=== PATIENT | female | born 1980 | race Caucasian/White ===

== ENCOUNTER → 2017-10-28 | Outpatient (REF) | payer OTHER | LOC: M SFHCCLAY 13:56 | DX: J02.9 Acute pharyngitis, unspecified (principal) ==

== ENCOUNTER → 2018-03-14 | Outpatient (CLI) | payer OTHER | LOC: M CLY 08:24 | DX: M25.571 Pain in right ankle and joints of right foot (principal); M77.31 Calcaneal spur, right foot; M79.89 Other specified soft tissue disorders | CPT/HCPCS: 73610 ==

== ENCOUNTER → 2018-03-29 | Outpatient (REF) | payer OTHER | LOC: M SFHCCLAY 14:36 | DX: L08.9 Local infection of the skin and subcutaneous tissue, unspecified (principal) | CPT/HCPCS: 87186 ==

== ENCOUNTER → 2018-05-31 | Outpatient (CLI) | payer OTHER | LOC: M CLY 09:20 | DX: S40.011A Contusion of right shoulder, initial encounter (principal); S60.222A Contusion of left hand, initial encounter; R60.0 Localized edema; X58.XXXA Exposure to other specified factors, initial encounter; Y92.9 Unspecified place or not applicable | CPT/HCPCS: 73030 ==

== ENCOUNTER → 2018-06-08 | Outpatient (REF) | payer OTHER | LOC: M LAB REF 06-09 11:27 | DX: R19.7 Diarrhea, unspecified (principal); R14.1 Gas pain; R14.0 Abdominal distension (gaseous); R10.9 Unspecified abdominal pain; Z83.71 Family history of colonic polyps; K21.9 Gastro-esophageal reflux disease without esophagitis; R12 Heartburn; R11.0 Nausea ==

== ENCOUNTER → 2018-08-24 | Outpatient (REF) | payer OTHER ==
[2018-08-24 11:38] LABS: HEMATOCRIT 41.5 % (36.0-47.0); HEMOGLOBIN 13.8 g/dl (12.0-15.5); MEAN CORPUSCULAR HEMOGLOBIN 29.7 pg (27.0-33.0); MEAN CORPUSCULAR HGB CONC 33.3 g/dl (32.0-36.5); MEAN CORPUSCULAR VOLUME 89.2 fl (80.0-96.0); PLATELET COUNT, AUTOMATED 329 10^3/uL (150-450); RED BLOOD COUNT 4.65 10^6/uL (4.00-5.40); RED CELL DISTRIBUTION WIDTH 12.3 % (11.5-14.5); WHITE BLOOD COUNT 8.2 10^3/uL (4.0-10.0)
[2018-08-24 12:11] LABS: BLOOD UREA NITROGEN 15 MG/DL (7-18); CREATININE FOR GFR 0.76 MG/DL (0.55-1.30); GLUCOSE, FASTING 109 MG/DL (70-100)
[2018-08-24 12:12] LABS: ALBUMIN 3.8 GM/DL (3.2-5.2); ALBUMIN/GLOBULIN RATIO 1.23 (1.00-1.93); ALKALINE PHOSPHATASE 82 U/L (45-117); ALT/SGPT 76 U/L (12-78); ANION GAP 6 MEQ/L (8-16); AST/SGOT 40 U/L (7-37); BILIRUBIN,TOTAL 0.6 MG/DL (0.2-1.0); CALCIUM LEVEL 8.9 MG/DL (8.5-10.1); CARBON DIOXIDE LEVEL 31 MEQ/L (21-32); CHLORIDE LEVEL 104 MEQ/L (98-107); CHOLESTEROL LEVEL 255 MG/DL (<200); GLOMERULAR FILTRATION RATE > 60.0 (>60); HDL CHOLESTEROL 51 MG/DL (>40); LDL CHOLESTEROL 170 MG/DL (<100); NON-HDL-C 204 MG/DL; POTASSIUM SERUM 4.1 MEQ/L (3.5-5.1); SODIUM LEVEL 141 MEQ/L (136-145); TOTAL 25(OH) VITAMIN D 17.4 NG/ML (30.0-100.0); TOTAL PROTEIN 6.9 GM/DL (6.4-8.2); TRIGLYCERIDES LEVEL 171 MG/DL (<150)
== END ==
LOC: M SFHCCLAY 06:44
DX: K21.9 Gastro-esophageal reflux disease without esophagitis (principal); I10 Essential (primary) hypertension; Z13.6 Encounter for screening for cardiovascular disorders; R63.5 Abnormal weight gain; F32.9 Major depressive disorder, single episode, unspecified
CPT/HCPCS: 84443

== ENCOUNTER → 2018-09-30 | Outpatient (CLI) | payer OTHER ==
--- NOTE | 2018-09-30 09:39 | REP ---
Gastric emptying nuclear scintigraphy: History: Bloating. Nausea. Abdominal pain. Early satiety. Technique: 1.05 mCi of technetium-99m sulfur colloid was ingested in two scrambled eggs and 6 ounces of water and sequential anterior and posterior images are acquired for an 89-minute imaging observation period. Regions of interest are drawn around the stomach to plot gastric emptying. Scintigraphic findings: Expected T1/2 is 90 minutes. Five % emptying is observed in this patient during the 89-minute imaging observation period, for a calculated T1/2 in this patient of 968 minutes. Impression: Markedly delayed gastric emptying. Electronically Signed by Good Martines MD 09/30/2018 09:31 A
== END ==
LOC: M RAD 07:26
PROVIDERS: ATTEND Physician Assistant
DX: R68.81 Early satiety (principal); R14.0 Abdominal distension (gaseous); R10.13 Epigastric pain; R11.0 Nausea; K44.9 Diaphragmatic hernia without obstruction or gangrene; K31.84 Gastroparesis; K21.9 Gastro-esophageal reflux disease without esophagitis; R14.1 Gas pain; R19.7 Diarrhea, unspecified; K22.70 Barrett's esophagus without dysplasia

== ENCOUNTER → 2018-11-29 | Outpatient (REF) | payer OTHER | LOC: M SFHCPLAZ 09:53 | PROVIDERS: ATTEND Dermatology | DX: L72.11 Pilar cyst (principal) ==

== ENCOUNTER → 2019-03-15 | Outpatient (REF) | payer OTHER ==
[2019-03-15 16:56] LABS: ALBUMIN 4.2 GM/DL (3.2-5.2); ALT/SGPT 79 U/L (12-78); BILIRUBIN,TOTAL 0.9 MG/DL (0.2-1.0); BLOOD UREA NITROGEN 9 MG/DL (7-18); CALCIUM LEVEL 9.7 MG/DL (8.5-10.1); CARBON DIOXIDE LEVEL 25 MEQ/L (21-32); CHLORIDE LEVEL 102 MEQ/L (98-107); FERRITIN 251 NG/ML (8-252); GLOMERULAR FILTRATION RATE > 60.0 (>60); GLUCOSE, FASTING 88 MG/DL (70-100); IRON (FE) 89 UG/DL (50-170); PERCENT SATURATION 32.4 % (13.2-45.0); PHOSPHORUS LEVEL 3.5 MG/DL (2.5-4.9); POTASSIUM SERUM 3.5 MEQ/L (3.5-5.1); SODIUM LEVEL 139 MEQ/L (136-145); TOTAL IRON BINDING CAPACITY 275 UG/DL (250-450); TOTAL PROTEIN 7.1 GM/DL (6.4-8.2)
[2019-03-15 17:03] LABS: VITAMIN B12 LEVEL > 2000 PG/ML (247-911)
[2019-03-15 17:15] LABS: BASO % 0.6 % (0.0-1.0); EOS # 0.1 10^3/uL (0.0-0.50); HEMATOCRIT 45.2 % (36.0-47.0); HEMOGLOBIN 15.1 g/dl (12.0-15.5); LYMPH # 1.4 10^3/uL (1.5-4.5); LYMPH % 28.5 % (24.0-44.0); MEAN CORPUSCULAR HEMOGLOBIN 30.3 pg (27.0-33.0); MEAN CORPUSCULAR HGB CONC 33.4 g/dl (32.0-36.5); MEAN CORPUSCULAR VOLUME 90.8 fl (80.0-96.0); MONO # 0.4 10^3/uL (0.0-0.8); MONO % 7.9 % (0.0-5.0); NEUTROPHILS # 3.1 10^3/uL (1.8-7.7); NEUTROPHILS % 60.8 % (36.0-66.0); PLATELET COUNT, AUTOMATED 279 10^3/uL (150-450); RED BLOOD COUNT 4.98 10^6/uL (4.00-5.40); WHITE BLOOD COUNT 5.1 10^3/uL (4.0-10.0)
[2019-03-15 17:16] LABS: HEMATOCRIT 44.2 % (36.0-47.0)
== END ==
LOC: M LABDRAWC 16:12
PROVIDERS: ATTEND Surgery
DX: K91.2 Postsurgical malabsorption, not elsewhere classified (principal); Z98.84 Bariatric surgery status; E55.9 Vitamin D deficiency, unspecified

== ENCOUNTER → 2019-03-31 | Outpatient (REF) | payer OTHER | LOC: M SFHCPLAZ 18:35 | PROVIDERS: ATTEND Dermatology | DX: D22.62 Melanocytic nevi of left upper limb, including shoulder (principal); D22.5 Melanocytic nevi of trunk ==

== ENCOUNTER 2019-05-09 14:12 | Emergency (ER) | payer OTHER ==
[~2019-05-09] VITALS: Ht 167.6 cm; Wt 97.7 kg
[2019-05-09] MEDS ORDERED: OMEP-221 (14:25)
[2019-05-09] MEDS ORDERED: VIIB10TA (14:25)
[2019-05-09] MEDS ORDERED: CEFD1CAP8 (14:25)
[2019-05-09] MEDS ORDERED: ZOLO100T PO (14:25)
[2019-05-09] MEDS ORDERED: OXYC1TAB23 (14:25)
[2019-05-09 15:10] LABS: BASO % 0.4 % (0.0-1.0); EOS # 0.1 10^3/uL (0.0-0.50); EOS % 1.4 % (0.0-3.0); HEMATOCRIT 38.9 % (36.0-47.0); HEMOGLOBIN 12.9 g/dl (12.0-15.5); LYMPH # 1.4 10^3/uL (1.5-4.5); LYMPH % 25.5 % (24.0-44.0); MEAN CORPUSCULAR HEMOGLOBIN 30.3 pg (27.0-33.0); MEAN CORPUSCULAR HGB CONC 33.2 g/dl (32.0-36.5); MEAN CORPUSCULAR VOLUME 91.3 fl (80.0-96.0); MONO # 0.4 10^3/uL (0.0-0.8); MONO % 7.1 % (0.0-5.0); NEUTROPHILS # 3.7 10^3/uL (1.8-7.7); NEUTROPHILS % 65.4 % (36.0-66.0); PLATELET COUNT, AUTOMATED 232 10^3/uL (150-450); RED BLOOD COUNT 4.26 10^6/uL (4.00-5.40); WHITE BLOOD COUNT 5.6 10^3/uL (4.0-10.0)
[2019-05-09 15:35] LABS: ALBUMIN 3.8 GM/DL (3.2-5.2); ALT/SGPT 110 U/L (12-78); BILIRUBIN,DIRECT 0.2 MG/DL (0.0-0.2); BILIRUBIN,TOTAL 0.6 MG/DL (0.2-1.0); BLOOD UREA NITROGEN 8 MG/DL (7-18); CALCIUM LEVEL 9.4 MG/DL (8.5-10.1); CARBON DIOXIDE LEVEL 30 MEQ/L (21-32); CHLORIDE LEVEL 107 MEQ/L (98-107); CREATININE FOR GFR 0.54 MG/DL (0.55-1.30); GLOMERULAR FILTRATION RATE > 60.0 (>60); GLUCOSE, FASTING 93 MG/DL (70-100); LIPASE 85 U/L (73-393); POTASSIUM SERUM 4.1 MEQ/L (3.5-5.1); SODIUM LEVEL 142 MEQ/L (136-145); TOTAL PROTEIN 6.5 GM/DL (6.4-8.2)
[2019-05-09] MEDS ORDERED: ACETAMINOPHEN 325 MG TAB PO ONE (15:45)
[2019-05-09] MEDS ORDERED: ONDANSETRON 4MG/2ML VIAL (J2405) IV ONE (15:45)
[2019-05-09 15:49] LABS: HCG, SERUM QUALITATIVE NEGATIVE (NEGATIVE)
[2019-05-09 17:56] VITALS: BP 160/86
--- NOTE | 2019-05-09 18:08 | REPVR ---
EXAM: CT Abdomen and Pelvis Without Contrast EXAM DATE/TIME: 05/09/2019 5:21 PM CLINICAL HISTORY: 38 years old, female; Abdominal pain; Flank; Right; Additional info: R flank pain, R/O stone TECHNIQUE: Imaging protocol: Axial computed tomography images of the abdomen and pelvis without contrast. Radiation optimization: All CT scans at this facility use at least one of these dose optimization techniques: automated exposure control; mA and/or kV adjustment per patient size (includes targeted exams where dose is matched to clinical indication); or iterative reconstruction. COMPARISON: NM-Gastric Emptying Study 09/30/2018 7:38 AM FINDINGS: Liver: Normal. No mass. Gallbladder and bile ducts: There has been a cholecystectomy. Pancreas: Normal. No ductal dilation. Spleen: Normal. No splenomegaly. Adrenals: Normal. No mass. Kidneys and ureters: No significant hydroureteronephrosis. Barely visible punctate nonobstructing calculus lower pole right kidney. No other intrarenal or obstructing ureteral calculi demonstrated. Stomach and bowel: This patient is status post gastric bypass surgery. Appendix: Normal appendix. Intraperitoneal space: Minimal free fluid in the cul-de-sac likely physiologic. Vasculature: The aorta demonstrates mild atherosclerotic calcification. Lymph nodes: Normal. No enlarged lymph nodes. Bladder: Unremarkable as visualized. Reproductive: Unremarkable as visualized. Bones/joints: Mild central spinal stenosis L4-5. Soft tissues: Unremarkable. IMPRESSION: 1. This patient is status post gastric bypass surgery. 2. There has been a cholecystectomy. 3. No significant hydroureteronephrosis. Barely visible punctate nonobstructing calculus lower pole right kidney. No other intrarenal or obstructing ureteral calculi demonstrated. Electronically signed by: Jay Mercedes On 05/09/2019 18:08:06 PM
[2019-05-09] MEDS ORDERED: KETOROLAC 30 MG/ML VIAL (J1885) IV ONE (18:45)
== END 2019-05-09 19:15 | disposition home or self-care (01) ==
LOC: M ED 14:12
DX: N20.0 Calculus of kidney (principal); R79.89 Other specified abnormal findings of blood chemistry; S39.012A Strain of muscle, fascia and tendon of lower back, initial encounter; X58.XXXA Exposure to other specified factors, initial encounter; Y92.89 Other specified places as the place of occurrence of the external cause; Z98.84 Bariatric surgery status; I10 Essential (primary) hypertension; Z87.440 Personal history of urinary (tract) infections; K21.9 Gastro-esophageal reflux disease without esophagitis; Z86.19 Personal history of other infectious and parasitic diseases; F41.9 Anxiety disorder, unspecified; F32.9 Major depressive disorder, single episode, unspecified; Z87.42 Personal history of other diseases of the female genital tract; Z87.891 Personal history of nicotine dependence; Z88.0 Allergy status to penicillin; Z79.899 Other long term (current) drug therapy; Z79.2 Long term (current) use of antibiotics; Z79.891 Long term (current) use of opiate analgesic
CPT/HCPCS: 74176; 80048; 80076; 81001; 83690; 84703; 85025; 87086; 96374; 96375; 99284; J1885; J2405

== ENCOUNTER → 2019-05-09 | Outpatient (CLI) | payer OTHER ==
[~2019-05-09] MED LIST: CEFD1CAP8; OMEP-221; OXYC1TAB23; VIIB10TA; ZOLO100T PO
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
== END ==
LOC: M CLY 10:33
PROVIDERS: ATTEND Family Medicine
DX: M77.31 Calcaneal spur, right foot (principal)

== ENCOUNTER → 2019-05-24 | Outpatient (CLI) | payer OTHER ==
--- NOTE | 2019-05-24 09:58 | REP ---
Clinical: Recent trauma. Technique: AP, lateral, bilateral oblique views of the right ankle. Comparison: 05/09/2019. Findings: Significant lateral swelling is appreciated consistent with inversion injury. Current examination now demonstrates small avulsion fracture fragments at the tip of the fibula. Ankle mortise intact. Medial malleolus and posterior malleolus appear normal. Impression: Lateral swelling and subtle avulsion injury of the fibular tip. Electronically Signed by Orion Moore MD 05/24/2019 09:49 A
== END ==
LOC: M CLY 09:32
PROVIDERS: ATTEND Family Medicine
DX: S93.04XA Dislocation of right ankle joint, initial encounter (principal); M79.89 Other specified soft tissue disorders; X58.XXXA Exposure to other specified factors, initial encounter; Y92.9 Unspecified place or not applicable

== ENCOUNTER → 2019-05-24 | Outpatient (REF) | payer OTHER ==
[2019-05-24 11:22] LABS: AMORPHOUS SEDIMENT MODERATE (NEGATIVE); APPEARANCE, URINE TURBID (CLEAR); BACTERIA, URINE AUTO NEGATIVE (NEGATIVE); BILIRUBIN, URINE AUTO NEGATIVE (NEGATIVE); BLOOD, URINE BLOOD NEGATIVE (NEGATIVE); COLOR, URINE AMBER (YELLOW); GLUCOSE, URINE (UA) AUTO NEGATIVE (NEGATIVE); KETONE, URINE AUTO TRACE mg/dL (NEGATIVE); LEUKOCYTE ESTERASE, URINE AUTO TRACE (NEGATIVE); MUCUS, URINE LARGE (NEGATIVE); NITRITE, URINE AUTO NEGATIVE (NEGATIVE); PROTEIN, URINE AUTO 1+ mg/dL (NEGATIVE); RBC, URINE AUTO 4 /HPF (0-3); SQUAMOUS EPITHELIAL CELL UR AU 24 /HPF (0-6); WBC, URINE AUTO 0 /HPF (0-3)
== END ==
LOC: M LABSMT 09:20
PROVIDERS: ATTEND Nurse Practitioner Family
DX: R31.29 Other microscopic hematuria (principal)

== ENCOUNTER → 2019-06-12 | Outpatient (REF) | payer OTHER | LOC: M SFHCCLAY 12:06 | PROVIDERS: ATTEND Family Medicine | DX: N39.0 Urinary tract infection, site not specified (principal) ==

== ENCOUNTER → 2019-08-28 | Outpatient (CLI) | payer OTHER ==
--- NOTE | 2019-08-28 11:59 | REP ---
Right ankle series: Four views. History: Acute pain Comparison right ankle radiographs are from May 24, 2019, May 17, 2019, and March 14, 2018. Findings: There is improved but mild persistent lateral malleolar soft tissue swelling. There are several tiny bone densities at the distal fibular tip consistent with recent avulsion chip fracture injury. These are essentially unchanged from May 24, 2019. Ankle mortise is intact. There is Achilles calcaneal spurring. No new fracture is seen. No tibial injury is seen. Impression: Status post fibular tip evulsion injury with improved but mild residual soft-tissue swelling laterally. Electronically Signed by Good Martines MD 08/28/2019 12:17 P
== END ==
LOC: M CLY 10:18
PROVIDERS: ATTEND Family Medicine
DX: M79.89 Other specified soft tissue disorders (principal); M77.31 Calcaneal spur, right foot; M25.571 Pain in right ankle and joints of right foot

== ENCOUNTER → 2019-08-28 | Outpatient (REF) | payer OTHER ==
[2019-08-28 17:10] LABS: FOLATE > 24.0 NG/ML; VITAMIN B12 LEVEL > 2000 PG/ML
== END ==
LOC: M SFHCCLAY 10:09
PROVIDERS: ATTEND Family Medicine
DX: R20.0 Anesthesia of skin (principal); R29.898 Other symptoms and signs involving the musculoskeletal system

== ENCOUNTER → 2019-10-18 | Outpatient (REF) | payer OTHER ==
[2019-10-18 13:48] LABS: CHLAMYDIA DNA AMPLIFICATION NEGATIVE (NEGATIVE); GC DNA AMPLIFICATION NEGATIVE (NEGATIVE)
== END ==
LOC: M SFHCCLAY 07:48
PROVIDERS: ATTEND Nurse Practitioner Family
DX: N76.1 Subacute and chronic vaginitis (principal); R87.5 Abnormal microbiological findings in specimens from female genital organs

== ENCOUNTER → 2019-12-08 | Outpatient (CLI) | payer OTHER ==
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
== END ==
LOC: M PAIN 09:30
PROVIDERS: ATTEND Family Medicine
DX: M51.17 Intervertebral disc disorders with radiculopathy, lumbosacral region (principal); Z86.59 Personal history of other mental and behavioral disorders; K21.9 Gastro-esophageal reflux disease without esophagitis; Z98.84 Bariatric surgery status; Z87.891 Personal history of nicotine dependence; Z88.0 Allergy status to penicillin; Z88.1 Allergy status to other antibiotic agents; Z79.899 Other long term (current) drug therapy

== ENCOUNTER → 2019-12-19 | Outpatient (CLI) | payer OTHER | LOC: M LABSMTC 11:33 | PROVIDERS: ATTEND Family Medicine | DX: Z11.59 Encounter for screening for other viral diseases (principal); Z20.828 Contact with and (suspected) exposure to other viral communicable diseases ==

== ENCOUNTER → 2020-01-02 | Outpatient (REF) | payer OTHER ==
[2020-01-02 17:06] LABS: ALBUMIN 3.9 GM/DL (3.2-5.2); ALT/SGPT 43 U/L (12-78); BILIRUBIN,TOTAL 0.7 MG/DL (0.2-1.0); BLOOD UREA NITROGEN 11 MG/DL (7-18); CALCIUM LEVEL 9.4 MG/DL (8.5-10.1); CARBON DIOXIDE LEVEL 32 MEQ/L (21-32); CHLORIDE LEVEL 105 MEQ/L (98-107); GLOMERULAR FILTRATION RATE > 60.0 (>58); GLUCOSE, FASTING 118 MG/DL (70-100); POTASSIUM SERUM 4.4 MEQ/L (3.5-5.1); RHEUMATOID FACTOR QUANT < 10.0 IU/ML (<15.0); SODIUM LEVEL 140 MEQ/L (136-145); TOTAL PROTEIN 6.8 GM/DL (6.4-8.2)
[2020-01-02 17:32] LABS: HEMATOCRIT 40.8 % (36.0-47.0); HEMOGLOBIN 13.7 g/dl (12.0-15.5); MEAN CORPUSCULAR HEMOGLOBIN 32.3 pg (27.0-33.0); MEAN CORPUSCULAR HGB CONC 33.6 g/dl (32.0-36.5); MEAN CORPUSCULAR VOLUME 96.2 fl (80.0-96.0); PLATELET COUNT, AUTOMATED 240 10^3/uL (150-450); RED BLOOD COUNT 4.24 10^6/uL (4.00-5.40)
[2020-01-02 18:37] LABS: ERYTHROCYTE SEDIMENTATION RATE 7 mm/hr (0-20)
== END ==
LOC: M SFHCCLAY 09:51
PROVIDERS: ATTEND Nurse Practitioner Family
DX: M25.50 Pain in unspecified joint (principal)

== ENCOUNTER → 2020-01-16 | Outpatient (CLI) | payer OTHER | LOC: M LABSMTC 12:26 | PROVIDERS: ATTEND Anesthesiology | DX: Z01.818 Encounter for other preprocedural examination (principal); Z11.59 Encounter for screening for other viral diseases ==

== ENCOUNTER → 2020-01-18 | Outpatient (CLI) | payer OTHER ==
[~2020-01-18] MED LIST changes: +ISOVUE-M 300 61% 15ML VIAL As Ordered ONE; +LIDOCAINE 1% SDV 30ML VIAL As Ordered ONE; +NORCO, ANEXSIA 5/325MG TABLET (HYDROcodone/ACETAMINOPHEN) As Ordered ONE; +dexameTHASONE 10MG/1ML VIAL PRES.FREE (J1100 PER 1MG) As Ordered ONE; +diazePAM 2 MG TAB As Ordered ONE
--- NOTE | 2020-01-18 14:33 | REP ---
Partial lumbar spine series: Three views . History: Injection procedure for pain. Eight seconds of fluoroscopy time is reported. Findings: A sequence of three fluoroscopically obtained last image hold procedural spot radiographs of the lumbar spine document needle position and contrast injection associated with injection procedure. Electronically Signed by Good Martines MD 01/18/2020 02:25 P
--- NOTE | 2020-01-24 00:53 | ECWPNPC ---
PATIENT NAME: MARY JASSO : 1980 GENDER: FEMALE VISIT DATE: 01/18/2020 DISCHARGE DATE: 01/18/20 1256 VISIT LOCKED DATE TIME: PHYSICIAN: ELISSA HERNANDEZ MD RESOURCE: ELISSA HERNANDEZ MD REASON FOR APPOINTMENT 1. LESI L5/S1 HISTORY OF PRESENT ILLNESS HISTORY OF PRESENT ILLNESS: PAIN THE PATIENT DESCRIBES THE PAIN... FALL RISK SCREENING: SCREENING :NO FALLS REPORTED IN THE LAST YEAR CURRENT MEDICATIONS TAKING FOLIC ACID 5 MG CAPSULE 1 CAPSULE ORALLY ONCE A DAY, NOTES: 01/17/2020899 TAKING PROBIOTIC - TABLET DELAYED RELEASE DIRECTED ORALLY , NOTES: 01/17/2020899 TAKING GABAPENTIN 800 MG TABLET 1 CAPSULE ORALLY THREE TIMES DAILY, NOTES: 01/17/2020 1600 TAKING HYDROXYZINE HCL 25 MG TABLET TAKE ONE TABLET BY MOUTH NEEDED EVERY 8 HOURS ORAL , NOTES: PRN TAKING VIIBRYD 10 MG TABLET 1 TABLET WITH FOOD ORALLY ONCE A DAY, NOTES: 01/17/2020899 TAKING ZOLOFT 100 MG TABLET 2 TABLET ORALLY ONCE A DAY, NOTES: 01/17/2020899 TAKING OMEPRAZOLE 40 MG CAPSULE DELAYED RELEASE 1 CAPSULE ORALLY ONCE A DAY, NOTES: 01/17/2020899 TAKING CYCLOBENZAPRINE HCL 10 MG TABLET TAKE ONE HALF TO ONE TABLET BY MOUTH EVERY 8 HOURS NEEDED FOR MUSCLE SPASM OR PAIN ORAL TIDPRN, NOTES: PRN- 2 DAYS AGO TAKING [id number] 1 MG TABLET CHEWABLE 2 ORALLY DAILY, NOTES: 01/17/2020899 TAKING CENTRUM ADULTS - TABLET DIRECTED ORALLY , NOTES: 01/17/2020899 TAKING BIOTIN 3 MG TABLET DIRECTED ORALLY BID, NOTES: 01/17/2020899 TAKING VITAMIN C 500 MG CAPSULE DIRECTED ORALLY , NOTES: 01/17/2020899 TAKING CLINDAMYCIN PHOSPHATE 1 % GEL 1 APPLICATION EXTERNALLY ONCE A DAY TO SCALP, NOTES: PRN TAKING TUMS 500 MG TABLET CHEWABLE 2 TABS ORALLY ONCE A DAY NOT-TAKING CALCIUM + D 600-200 MG-UNIT TABLET 1 TABLET ORALLY TWICE A DAY NOT-TAKING ESOMEPRAZOLE MAGNESIUM 20 MG CAPSULE DELAYED RELEASE 1 CAPSULE ORALLY 24 HR, OTC ONCE A DAY NOT-TAKING MACROBID 100 MG CAPSULE 1 CAPSULE AT BEDTIME WITH FOOD ORALLY BID NOT-TAKING DIFLUCAN 150 MG TABLET 1 TABLET ORALLY DIRECTED MEDICATION LIST REVIEWED AND RECONCILED WITH THE PATIENT PAST MEDICAL HISTORY ANXIETY OTHER DEPRESSION SQUAMOUS CELL CARCINOMA GERD GASTRIC BYPASS ALLERGIES PENICILLIN (FOR ALLERGIES USE ONLY): HIVES - ALLERGY CEFDINIR: YEAST INFECTION(SEVERE) - SIDE EFFECTS SURGICAL HISTORY GALL BLADDER REMOVAL 2006 TUBAL LIGATION 2010 UTERINE ABLASION 2017 MOHS PROCEDURE TO RIGHT GRT TOE/SCC GASTRIC BYPASS 2019 LIVER BIOPSY 2019 HERNIA REPAIR 2019 WISDOM TEETH 2018 FAMILY HISTORY FATHER: , MVA MOTHER: ALIVE, HX CERVICAL CANCER, DIAGNOSED WITH DIABETES, HYPERTENSION, UNSPECIFIED NONPSYCHOTIC MENTAL DISORDER FOLLOWING ORGANIC BRAIN DAMAGE, OTHER MALIGNANT NEOPLASM OF UNSPECIFIED SITE SIBLINGS: ALIVE SON(S): ALIVE DAUGHTER(S): ALIVE 2 BROTHER(S) , 1 SISTER(S) - HEALTHY. 1 SON(S) , 1 DAUGHTER(S) - HEALTHY. ++CANCER IN FAMILYDENIES FAMILY HX OF PANCREATIC CANCER. GRANDFATHER HAD MELANOMA. SOCIAL HISTORY GENERAL: TOBACCO USE ARE YOU A:FORMER SMOKER VAPORNO E-CIGARETTENO SMOKING CESSATION INFORMATION GIVEN12/20/2017 LATEX QUESTIONNAIRE LATEX ALLERGY : HAVE YOU EVER DEVELOPED ANY TYPE OF REACTION AFTER HANDLING LATEX PRODUCTS SUCH RUBBER GLOVES, CONDOMS, DIAPHRAGMS, BALLOONS, SOCKS, OR UNDERWEAR?NO LATEX ALLERGY : HAVE YOU EVER DEVELOPED ANY TYPE OF REACTION DURING OR AFTER DENTAL APPOINTMENT, VAGINAL/RECTAL EXAMINATION, SURGICAL PROCEDURE, OR ANY OTHER EXPOSURE?NO DATE ASKED : 12/08/2019 LATEX RISK : HAVE YOU EVER HAD ANY DIFFICULTY BREATHING OR HIVES AFTER EATING OR HANDLING ANY FRUITS, OR VEGETABLES; SUCH KIWI, BANANAS, STONE FRUITS, OR CHESTNUTSNO LATEX RISK : DO YOU HAVE A PREVIOUS PERSONAL HISTORY OF MORE THAN NINE SURGERIES, SPINA BIFIDA, OR REPEATED CATHERIZATIONS? NO LATEX RISK : ARE YOU FREQUENTLY EXPOSED TO LATEX PRODUCTS IN YOUR OCCUPATION?NO BMI CARE GOAL FOLLOW-UP ABOVE NORMAL BMI FOLLOW-UPGIVING ENCOURAGEMENT TO EXERCISE ALCOHOL SCREENING DID YOU HAVE A DRINK CONTAINING ALCOHOL IN THE PAST YEAR?YES HOW OFTEN DID YOU HAVE SIX OR MORE DRINKS ON ONE OCCASION IN THE PAST YEAR?NEVER (0 POINTS) HOW MANY DRINKS DID YOU HAVE ON A TYPICAL DAY WHEN YOU WERE DRINKING IN THE PAST YEAR?1 OR 2 (0 POINTS) HOW OFTEN DID YOU HAVE A DRINK CONTAINING ALCOHOL IN THE PAST YEAR?MONTHLY OR LESS (1 POINT) POINTS1 INTERPRETATIONNEGATIVE RECREATIONAL DRUG USE DRUG USE?NO CAFFEINE CAFFEINE USE?YES HOW OFTEN AND HOW MUCH? 1-2 CUPS COFFEE DAILY SEXUAL HX HAD SEX IN THE LAST 12 MONTHS (VAGINAL, ORAL, OR ANAL)?YES WITHMEN ONLY USE PROTECTION?NO LMP:2017--PRE ABLASION HAVE YOU EVER HAD AN STD?YES OTHER?YES CHLAMYDIA?YES HIV / HEP-C SCREENING HIV TEST OFFERED TO PATIENT:YES DATE OFFERED:12/20/2017 TEST ACCEPTED:NO HEP-C TEST OFFERED TO PATIENT:NO REASON:PATIENT DECLINED BROCHURE PROVIDED TO PATIENTNO NONDENOMINATIONAL [id number] MANDAEN PRESYBETERIAN LANGUAGE LANGUAGES SPOKEN:SLOVENIAN EDUCATION LEVEL OF EDUCATION:HIGH SCHOOL LEARNING BARRIERS / SPECIAL NEEDS CHANGE FROM LAST VISIT?NO 01/02/2020 BARRIERS TO LEARNING?NO HEARING IMPAIRED?NO VISION IMPAIRED?NO COGNITIVELY IMPAIRED?NO READINESS TO LEARN?YES LEARNING PREFERENCES?NO LEARNING CAPABILITIES PRESENT?YES EMOTIONAL BARRIERS?NO SPECIAL DEVICES?NO PROJECT LANDSCAPE ARCHITECT NEEDED?NO DOMESTIC VIOLENCE DO YOU FEEL SAFE IN YOUR ENVIRONMENT?YES 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 DIET: REGULAR. EXERCISE: DAILY. MARITAL STATUS: /. OTHERS AT HOME: BOYFRIEND,SON,DAUGHTER. NEW PATIENT PAIN DIARY TODAY'S VISITNOTES 01/18/2020 PATIENT DESCRIBES PAIN :ACHING, HAVE IT ALL THE TIME, SHARP, STABBING FROM 0-10, WHAT LEVEL IS YOUR PAIN TODAY?9 PRECIPITATING FACTORS BREATHING, PROLONGED STANDING, LONG WALKING ALLEVIATING FACTORS NO RELIEF PAIN CLINIC PFS, CLERGY, PUBLIC HEALTH REFERRALS PFS REFERRAL NEEDED?NO CLERGY REFERRAL NEEDED?NO PUBLIC HEALTH REFERRAL NEEDED?NO HAS THE PATIENT BEEN EDUCATED REGARDING HIS/HER PLAN OF CARE?YES HAS THE PATIENT BEEN EDUCATED REGARDING PAIN, THE RISK FOR PAIN, THE IMPORTANCE OF EFFECTIVE PAIN MANAGEMENT, AND THE PAIN ASSESSMENT PROCESS?YES ADVANCE DIRECTIVE ADVANCE DIRECTIVE DISCUSSED WITH PATIENT:YES 12/08/2019 PT DOES NOT HAVE ANY ADVANCED DIRECTIVES AND SHE DECLINES INFORMATION ON HCP AT THIS TIME HOSPITALIZATION/MAJOR DIAGNOSTIC PROCEDURE SURGERY REVIEW OF SYSTEMS REVIEWED BY: PROVIDER: ELISSA HERNANDEZ MD . CONSTITUTIONAL: ANY CHANGE IN YOUR MEDICAL CONDITION? NO . CHILLS NO . FEVER NO . INFECTION: DO YOU HAVE NEW INFECTIONS? NO . DO YOU HAVE HISTORY OF MRSA? NO . MUSCULOSKELETAL: ANY NEW PATTERNS OF PAIN OR NUMBNESS? NO . GASTROENTEROLOGY: ANY NEW CHANGE IN BOWEL CONTROL? NO . GENITOURINARY: ANY NEW CHANGE IN BLADDER CONTROL? NO . IS THERE A CHANCE YOU COULD BE ? NO . HEMATOLOGY/LYMPH: DO YOU TAKE ANY BLOOD THINNERS? (FOR EXAMPLE- COUMADIN, PLAVIX, AGGRENOX, PLATEL, PRADAXA, OR XARELTO) NO . WHEN WAS YOUR LAST DOSE? DATE: TIME: . NEUROLOGY: HAVE YOU FALLEN IN THE PAST 12 MONTHS? YES- FELL 2 DAYS, STATES RIGHT LEG IS NUMB SO SHE FELL DUE TO THAT, STATES NO INJURIES . ANY NEW EXTREMITY NUMBNESS OR WEAKNESS? NO . CARDIOLOGY: DO YOU HAVE A PACEMAKER OR DEFIBRILLATOR? NO . RESPIRATORY: HAVE YOU BEEN SICK IN THE PAST WEEK? NO . FEVER NO . FLU LIKE SYMPTOMS? NO . COUGH NO . INTEGUMENTARY: DO YOU HAVE ANY RASHES OR OPEN SORES? NO . ALLERGIC/IMMUNO: ARE YOU ALLERGIC TO IV DYE? NO . ANY NEW ALLERGIES? NO . PSYCHIATRIC: DO YOU HAVE THOUGHTS OF HURTING YOURSELF OR SOMEONE ELSE? NO . ARE YOU ABUSED, NEGLECTED, OR IN AN UNSAFE ENVIRONMENT? NO . ENDOCRINOLOGY: ARE YOU DIABETIC? NO . OTHER: DO YOU NEED ANY PRESCRIPTIONS? NO . IF YES, PLEASE LIST: ____ . ANY NEW PROBLEMS WITH YOUR MEDICATIONS? NO . WHEN DID YOU LAST EAT? 01/17/2020 1800 . WHEN DID YOU LAST DRINK? 01/18/2020 0600 . WHAT DID YOU LAST DRINK? WATER . NAME OF PERSON DRIVING YOU HOME? NAVI . DO YOU HAVE ANY OTHER QUESTIONS OR CONCERNS NO . VITAL SIGNS WT 171 LBS, HT 66 IN, BMI 27.60 INDEX, BP 127/78 MM HG, HR 75 /MIN, RR 18 /MIN, TEMP 97.6 F, OXYGEN SAT % 100%, NA INITIALS AW 1027. ASSESSMENTS INTERVERTEBRAL DISC DISORDER WITH RADICULOPATHY OF LUMBOSACRAL REGION - M51.17 (PRIMARY) TREATMENT INTERVERTEBRAL DISC DISORDER WITH RADICULOPATHY OF LUMBOSACRAL REGION [facility] FLUORO GUIDE SPINE INJECTION (PAIN)[id number] PROCEDURES PRE PROCEDURE DIAGNOSIS LUMBOSACRAL DISC DISORDER WITH RADICULOPATHY POST PROCEDURE DIAGNOSIS LUMBOSACRAL DISC DISORDER WITH RADICULOPATHY PROCEDURE LUMBAR EPIDURAL STEROID INJECTION UNDER FLUOROSCOPIC GUIDANCE SURGEON DR. ELISSA HERNANDEZ WAXER FLOOR NONE ANESTHESIA LOCAL PRE PROCEDURE NOTE THE PATIENT HAS A HISTORY OF CHRONIC LOW BACK PAIN. I EVALUATED THE PATIENT AND REVIEWED THE CHART. I WENT OVER THE RISKS, ALTERNATIVES, AND BENEFITS ASSOCIATED WITH THIS PROCEDURE. I DISCUSSED WITH THE PATIENT THAT THE USE OF STEROIDS MAY CONTRIBUTE TO IMMUNOSUPPRESSION OF HER BODY AGAINST INFECTIONS SUCH THE GROVES VIRUS, COVID-19. SHE IS AWARE OF THE POTENTIAL COMPLICATIONS ASSOCIATED WITH AN INFECTION OF THIS VIRUS INCLUDING . THE PATIENT WOULD LIKE TO PROCEED AND GIVE CONSENT TO PERFORMED THE PROCEDURE. THE PATIENT DENIES UNEXPLAINABLE WEIGHT LOSS, FEVER, CHILLS, OR NEW CHANGES IN URINARY OR BOWEL CONTROL. THE PATIENT IS COVID-19 NEGATIVE DESCRIPTION OF PROCEDURE THE PATIENT WAS BROUGHT TO THE PROCEDURE ROOM AND PLACED IN THE PRONE POSITION. THE LUMBOSACRAL AREA WAS CLEANED WITH BETADINE SOLUTION AND DRAPED ASEPTICALLY. THE PROCEDURE WAS DONE UNDER STERILE CONDITIONS. I CHECKED LATERALITY AND THE LEVEL WHERE THE PROCEDURE WAS GOING TO BE PERFORMED WITH THE PATIENT AND THE SUPPORTING STAFF AT THE MOMENT OF THE TIME OUT IN THE PROCEDURE ROOM. UNDER FLUOROSCOPIC GUIDANCE, THE TARGET POINT WAS SELECTED AT THE INTERLAMINAR LEVEL OF L5-S1. LIDOCAINE WAS USED TO NUMB THE SKIN AND THE SUBCUTANEOUS TISSUE BELOW IT. EPIDURAL TUOHY NEEDLE, 17-GAUGE, WAS ADVANCED UNDER FLUOROSCOPIC GUIDANCE AND FOLLOWING PATIENT FEEDBACK UNTIL THE EPIDURAL SPACE WAS REACHED, 7 CM DEEP INTO THE SKIN BY THE LOSS OF RESISTANCE TECHNIQUE. ISOVUE M DYE 30%, 0.25 ML, WAS INJECTED SHOWING ADEQUATE SPREAD OF THE DYE. THEN, A SOLUTION OF 3 ML OF NORMAL SALINE WITH DEXAMETHASONE 10 MG WAS INJECTED SLOWLY FOLLOWING PATIENT FEEDBACK. THERE WAS NO EVIDENCE OF BLOOD, PARESTHESIA OR CEREBROSPINAL FLUID DURING THE PROCEDURE. THE PATIENT WAS SENT TO THE RECOVERY ROOM. THE PATIENT WAS MOVING THE EXTREMITIES AND DOING WELL. THERE WAS NO COMPLICATION DURING THE PROCEDURE. FLUOROSCOPY TIME WAS 8 SECONDS POST PROCEDURE NOTE THE PATIENT WILL BE SEEN IN A FOLLOW UP IN THE NEXT FEW WEEKS. I AM LOOKING FOR LONG LASTING PAIN RELIEF FOR THE PATIENT WITH THIS INJECTION. INSTRUCTIONS WERE GIVEN, QUESTIONS WERE ANSWERED, AND THE PATIENT EXPRESSED UNDERSTANDING AND AGREES WITH THE PLAN. I INSTRUCTED THE PATIENT TO STAY HOME, IF POSSIBLE, FOR A WEEK DUE TO COVID-19. I, SONYA ANG, DOCUMENTED THE ABOVE INFORMATION ACTING A SCRIBE FOR DR. HERNANDEZ. I HAVE REVIEWED THE ABOVE DOCUMENT, WRITTEN BY SONYA ANG, SCRIBE, AND I VERIFY THAT IT IS ACCURATE PROCEDURE CODES 67512 LUMBAR/SACRAL W/ IMAGING 6045F RADXPS IN END [id number] PXD DISPOSITION & COMMUNICATION FOLLOW UP 2 WEEKS F/UP NURSES MEDICAL ASSISTANTS PHLEBOTOMISTS (REASON: POST-PROCEDURE F/UP) ELECTRONICALLY SIGNED BY EILSSA HERNANDEZ MD, MD ON 01/23/2020 AT 02:21 PM EDT DISCLAIMER : THIS IS A VISIT SUMMARY EXTRACTED FROM THE [facility] CHART. IT IS NOT A COPY OF THE [employer] PROGRESS NOTE. LES
== END ==
LOC: M PAIN 10:45
PROVIDERS: ATTEND Anesthesiology
DX: M51.17 Intervertebral disc disorders with radiculopathy, lumbosacral region (principal); Z86.59 Personal history of other mental and behavioral disorders; K21.9 Gastro-esophageal reflux disease without esophagitis; Z98.84 Bariatric surgery status; Z87.891 Personal history of nicotine dependence; Z88.0 Allergy status to penicillin; Z88.1 Allergy status to other antibiotic agents; Z79.899 Other long term (current) drug therapy
CPT/HCPCS: 62323; J1100; Q9967

== ENCOUNTER → 2020-01-31 | Outpatient (REF) | payer OTHER ==
[~2020-01-31] MED LIST changes: -ISOVUE-M 300 61% 15ML VIAL As Ordered ONE; -LIDOCAINE 1% SDV 30ML VIAL As Ordered ONE; -NORCO, ANEXSIA 5/325MG TABLET (HYDROcodone/ACETAMINOPHEN) As Ordered ONE; -dexameTHASONE 10MG/1ML VIAL PRES.FREE (J1100 PER 1MG) As Ordered ONE; -diazePAM 2 MG TAB As Ordered ONE
== END ==
LOC: M SFHCCLAY 08:52
PROVIDERS: ATTEND Nurse Practitioner Family
DX: N39.0 Urinary tract infection, site not specified (principal)

== ENCOUNTER → 2020-02-02 | Outpatient (CLI) | payer OTHER ==
[~2020-02-02] MED LIST changes: +BACL10TA2 PO; +BIOT1CAP2 PO; +CVS1CAP2 PO; +EQL50TAB2 PO; +FOLI400T PO; +GABA800T4 PO; +MULTCAP PO; +OMEP40CA97 PO; +TUMS750C22 PO; +VITA500C24 PO
--- NOTE | 2020-02-06 02:21 | ECWPNPC ---
PATIENT NAME: MARY JASSO : 1980 GENDER: FEMALE VISIT DATE: 02/02/2020 DISCHARGE DATE: 02/02/20 1214 VISIT LOCKED DATE TIME: PHYSICIAN: ALEX HELM RESOURCE: ALEX HELM REASON FOR APPOINTMENT 1. POST [phone] PAT PHONE CALL COMPLETED HISTORY OF PRESENT ILLNESS HISTORY OF PRESENT ILLNESS: PAIN THE PATIENT DESCRIBES THE PAIN... PERMISSION REQUESTED AND RECEIVED FROM PATIENT TO PERFORM TELEHEALTH VISIT. 39-YEAR-OLD FEMALE IN FOR LESI FOLLOW-UP. SHE RATES HER PAIN PREPROCEDURE AT A 9 OUT OF 10 AND POSTPROCEDURE AT A 0 OUT OF 10X2 WEEKS. SHE RATES HER PAIN CURRENTLY AT A 10 OUT OF 10 AND DESCRIBES IT THROBBING AND STABBING. FALL RISK SCREENING: SCREENING :NO FALLS REPORTED IN THE LAST YEAR CURRENT MEDICATIONS TAKING FOLIC ACID 5 MG CAPSULE 1 CAPSULE ORALLY ONCE A DAY, NOTES: 01/17/2020899 TAKING PROBIOTIC - TABLET DELAYED RELEASE DIRECTED ORALLY , NOTES: 01/17/2020899 TAKING GABAPENTIN 800 MG TABLET 1 CAPSULE ORALLY THREE TIMES DAILY, NOTES: 01/17/2020 1600 TAKING HYDROXYZINE HCL 25 MG TABLET TAKE ONE TABLET BY MOUTH NEEDED EVERY 8 HOURS ORAL , NOTES: PRN TAKING VIIBRYD 10 MG TABLET 1 TABLET WITH FOOD ORALLY ONCE A DAY, NOTES: 01/17/2020899 TAKING ZOLOFT 100 MG TABLET 2 TABLET ORALLY ONCE A DAY, NOTES: 01/17/2020899 TAKING OMEPRAZOLE 40 MG CAPSULE DELAYED RELEASE 1 CAPSULE ORALLY ONCE A DAY, NOTES: 01/17/2020899 TAKING CYCLOBENZAPRINE HCL 10 MG TABLET TAKE ONE HALF TO ONE TABLET BY MOUTH EVERY 8 HOURS NEEDED FOR MUSCLE SPASM OR PAIN ORAL TIDPRN, NOTES: PRN- 2 DAYS AGO TAKING [id number] 1 MG TABLET CHEWABLE 2 ORALLY DAILY, NOTES: 01/17/2020899 TAKING CENTRUM ADULTS - TABLET DIRECTED ORALLY , NOTES: 01/17/2020899 TAKING BIOTIN 3 MG TABLET DIRECTED ORALLY BID, NOTES: 01/17/2020899 TAKING VITAMIN C 500 MG CAPSULE DIRECTED ORALLY , NOTES: 01/17/2020899 TAKING CLINDAMYCIN PHOSPHATE 1 % GEL 1 APPLICATION EXTERNALLY ONCE A DAY TO SCALP, NOTES: PRN TAKING TUMS 500 MG TABLET CHEWABLE 2 TABS ORALLY ONCE A DAY TAKING CIPRODEX 0.3-0.1 % SUSPENSION 4 DROPS INTO AFFECTED EAR OTIC TWICE A DAY NOT-TAKING MACROBID 100 MG CAPSULE 1 CAPSULE AT BEDTIME WITH FOOD ORALLY BID NOT-TAKING CALCIUM + D 600-200 MG-UNIT TABLET 1 TABLET ORALLY TWICE A DAY NOT-TAKING ESOMEPRAZOLE MAGNESIUM 20 MG CAPSULE DELAYED RELEASE 1 CAPSULE ORALLY 24 HR, OTC ONCE A DAY NOT-TAKING MACROBID 100 MG CAPSULE 1 CAPSULE AT BEDTIME WITH FOOD ORALLY BID NOT-TAKING DIFLUCAN 150 MG TABLET 1 TABLET ORALLY DIRECTED MEDICATION LIST REVIEWED AND RECONCILED WITH THE PATIENT PAST MEDICAL HISTORY ANXIETY OTHER DEPRESSION SQUAMOUS CELL CARCINOMA GERD GASTRIC BYPASS ALLERGIES PENICILLIN (FOR ALLERGIES USE ONLY): HIVES - ALLERGY CEFDINIR: YEAST INFECTION(SEVERE) - SIDE EFFECTS SURGICAL HISTORY GALL BLADDER REMOVAL 2006 TUBAL LIGATION 2010 UTERINE ABLASION 2016 MOHS PROCEDURE TO RIGHT GRT TOE/SCC GASTRIC BYPASS 2019 LIVER BIOPSY 2019 HERNIA REPAIR 2019 WISDOM TEETH 2018 FAMILY HISTORY FATHER: , MVA MOTHER: ALIVE, HX CERVICAL CANCER, DIAGNOSED WITH DIABETES, HYPERTENSION, UNSPECIFIED NONPSYCHOTIC MENTAL DISORDER FOLLOWING ORGANIC BRAIN DAMAGE, OTHER MALIGNANT NEOPLASM OF UNSPECIFIED SITE SIBLINGS: ALIVE SON(S): ALIVE DAUGHTER(S): ALIVE 2 BROTHER(S) , 1 SISTER(S) - HEALTHY. 1 SON(S) , 1 DAUGHTER(S) - HEALTHY. ++CANCER IN FAMILYDENIES FAMILY HX OF PANCREATIC CANCER. GRANDFATHER HAD MELANOMA. SOCIAL HISTORY GENERAL: TOBACCO USE ARE YOU A:FORMER SMOKER VAPORNO E-CIGARETTENO SMOKING CESSATION INFORMATION GIVEN12/20/2017 LATEX QUESTIONNAIRE LATEX ALLERGY : HAVE YOU EVER DEVELOPED ANY TYPE OF REACTION AFTER HANDLING LATEX PRODUCTS SUCH RUBBER GLOVES, CONDOMS, DIAPHRAGMS, BALLOONS, SOCKS, OR UNDERWEAR?NO LATEX ALLERGY : HAVE YOU EVER DEVELOPED ANY TYPE OF REACTION DURING OR AFTER DENTAL APPOINTMENT, VAGINAL/RECTAL EXAMINATION, SURGICAL PROCEDURE, OR ANY OTHER EXPOSURE?NO DATE ASKED : 12/08/2019 LATEX RISK : HAVE YOU EVER HAD ANY DIFFICULTY BREATHING OR HIVES AFTER EATING OR HANDLING ANY FRUITS, OR VEGETABLES; SUCH KIWI, BANANAS, STONE FRUITS, OR CHESTNUTSNO LATEX RISK : DO YOU HAVE A PREVIOUS PERSONAL HISTORY OF MORE THAN NINE SURGERIES, SPINA BIFIDA, OR REPEATED CATHERIZATIONS? NO LATEX RISK : ARE YOU FREQUENTLY EXPOSED TO LATEX PRODUCTS IN YOUR OCCUPATION?NO BMI CARE GOAL FOLLOW-UP ABOVE NORMAL BMI FOLLOW-UPGIVING ENCOURAGEMENT TO EXERCISE ALCOHOL SCREENING DID YOU HAVE A DRINK CONTAINING ALCOHOL IN THE PAST YEAR?YES HOW OFTEN DID YOU HAVE SIX OR MORE DRINKS ON ONE OCCASION IN THE PAST YEAR?NEVER (0 POINTS) HOW MANY DRINKS DID YOU HAVE ON A TYPICAL DAY WHEN YOU WERE DRINKING IN THE PAST YEAR?1 OR 2 (0 POINTS) HOW OFTEN DID YOU HAVE A DRINK CONTAINING ALCOHOL IN THE PAST YEAR?MONTHLY OR LESS (1 POINT) POINTS1 INTERPRETATIONNEGATIVE RECREATIONAL DRUG USE DRUG USE?NO CAFFEINE CAFFEINE USE?YES HOW OFTEN AND HOW MUCH? 1-2 CUPS COFFEE DAILY SEXUAL HX HAD SEX IN THE LAST 12 MONTHS (VAGINAL, ORAL, OR ANAL)?YES WITHMEN ONLY USE PROTECTION?NO LMP:2017--PRE ABLASION HAVE YOU EVER HAD AN STD?YES OTHER?YES CHLAMYDIA?YES HIV / HEP-C SCREENING HIV TEST OFFERED TO PATIENT:YES DATE OFFERED:12/20/2017 TEST ACCEPTED:NO HEP-C TEST OFFERED TO PATIENT:NO REASON:PATIENT DECLINED BROCHURE PROVIDED TO PATIENTNO ZOROASTRIANISM [id number] RESTORATIONIST ISLAM LANGUAGE LANGUAGES SPOKEN:DUTCH EDUCATION LEVEL OF EDUCATION:HIGH SCHOOL LEARNING BARRIERS / SPECIAL NEEDS CHANGE FROM LAST VISIT?NO 01/02/2020 BARRIERS TO LEARNING?NO HEARING IMPAIRED?NO VISION IMPAIRED?NO COGNITIVELY IMPAIRED?NO READINESS TO LEARN?YES LEARNING PREFERENCES?NO LEARNING CAPABILITIES PRESENT?YES EMOTIONAL BARRIERS?NO SPECIAL DEVICES?NO BULLDOZER PRESS OPERATOR NEEDED?NO DOMESTIC VIOLENCE DO YOU FEEL SAFE IN YOUR ENVIRONMENT?YES 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 DIET: REGULAR. EXERCISE: DAILY. MARITAL STATUS: /. OTHERS AT HOME: BOYFRIEND,SON,DAUGHTER. NEW PATIENT PAIN DIARY TODAY'S VISITNOTES 02/01/2020 PATIENT DESCRIBES PAIN :ACHING, HAVE IT ALL THE TIME, SHARP, STABBING FROM 0-10, WHAT LEVEL IS YOUR PAIN TODAY?9 PRECIPITATING FACTORS BREATHING, PROLONGED STANDING, LONG WALKING ALLEVIATING FACTORS NO RELIEF PAIN CLINIC PFS, CLERGY, PUBLIC HEALTH REFERRALS PFS REFERRAL NEEDED?NO CLERGY REFERRAL NEEDED?NO PUBLIC HEALTH REFERRAL NEEDED?NO HAS THE PATIENT BEEN EDUCATED REGARDING HIS/HER PLAN OF CARE?YES HAS THE PATIENT BEEN EDUCATED REGARDING PAIN, THE RISK FOR PAIN, THE IMPORTANCE OF EFFECTIVE PAIN MANAGEMENT, AND THE PAIN ASSESSMENT PROCESS?YES ADVANCE DIRECTIVE ADVANCE DIRECTIVE DISCUSSED WITH PATIENT:YES 12/08/2019 PT DOES NOT HAVE ANY ADVANCED DIRECTIVES AND SHE DECLINES INFORMATION ON HCP AT THIS TIME HOSPITALIZATION/MAJOR DIAGNOSTIC PROCEDURE SURGERY REVIEW OF SYSTEMS REVIEWED BY: PROVIDER: ANDRA BEAR . CONSTITUTIONAL: ANY CHANGE IN YOUR MEDICAL CONDITION? NO . CHILLS NO . FEVER NO . INFECTION: DO YOU HAVE NEW INFECTIONS? NO . DO YOU HAVE HISTORY OF MRSA? NO . MUSCULOSKELETAL: ANY NEW PATTERNS OF PAIN OR NUMBNESS? NO . GASTROENTEROLOGY: ANY NEW CHANGE IN BOWEL CONTROL? NO . GENITOURINARY: ANY NEW CHANGE IN BLADDER CONTROL? YES INCREASED URGENCY . IS THERE A CHANCE YOU COULD BE ? NO . HEMATOLOGY/LYMPH: DO YOU TAKE ANY BLOOD THINNERS? (FOR EXAMPLE- COUMADIN, PLAVIX, AGGRENOX, PLATEL, PRADAXA, OR XARELTO) NO . WHEN WAS YOUR LAST DOSE? DATE: TIME: . NEUROLOGY: HAVE YOU FALLEN IN THE PAST 12 MONTHS? YES PT REPORTS HER RIGHT LEG WAS NUMB FOR 5 MONTHS, CAUSED HER SOME FALLS. NO ED VISITS, NO XRAYS. NONE RECENT, NONE SINCE INJECTIONS . ANY NEW EXTREMITY NUMBNESS OR WEAKNESS? NO . CARDIOLOGY: DO YOU HAVE A PACEMAKER OR DEFIBRILLATOR? NO . RESPIRATORY: HAVE YOU BEEN SICK IN THE PAST WEEK? NO . FEVER NO . FLU LIKE SYMPTOMS? NO . COUGH NO . INTEGUMENTARY: DO YOU HAVE ANY RASHES OR OPEN SORES? NO . ALLERGIC/IMMUNO: ARE YOU ALLERGIC TO IV DYE? NO . ANY NEW ALLERGIES? NO . PSYCHIATRIC: DO YOU HAVE THOUGHTS OF HURTING YOURSELF OR SOMEONE ELSE? NO . ARE YOU ABUSED, NEGLECTED, OR IN AN UNSAFE ENVIRONMENT? NO . ENDOCRINOLOGY: ARE YOU DIABETIC? NO . OTHER: DO YOU NEED ANY PRESCRIPTIONS? NO . IF YES, PLEASE LIST: ____ . ANY NEW PROBLEMS WITH YOUR MEDICATIONS? NO . WHEN DID YOU LAST EAT? ____ . WHEN DID YOU LAST DRINK? ____ . WHAT DID YOU LAST DRINK? ____ . NAME OF PERSON DRIVING YOU HOME? ____ . DO YOU HAVE ANY OTHER QUESTIONS OR CONCERNS NO . EXAMINATION GENERAL EXAMINATION: GENERALNO ACUTE DISTRESS, WELL NOURISHED AND HYDRATED. PSYCHAPPROPRIATE MOOD AND AFFECT , ORIENTED X 3. ASSESSMENTS INTERVERTEBRAL DISC DISORDER WITH RADICULOPATHY OF LUMBOSACRAL REGION - M51.17 (PRIMARY) TREATMENT INTERVERTEBRAL DISC DISORDER WITH RADICULOPATHY OF LUMBOSACRAL REGION CLINICAL NOTES: 39-YEAR-OLD FEMALE IN FOR POST LESI FOLLOW-UP. GIVEN PRESENTING SYMPTOMS RECOMMEND FOLLOW-UP IN CLINIC IN 6 WEEKS. PATIENT HAS EXPRESSED UNDERSTANDING OF AND WAS IN AGREEMENT WITH TREATMENT PLAN. GIVEN TIME TO ASK QUESTIONS AND EXPRESS CONCERNS. TELEHEALTH VISIT PERFORMED VIA ZOOM. TIME SPENT WITH PATIENT 7 MINUTES. OTHERS NOTES: NO VITAL SIGNS TAKEN, THIS IS A VIRTUAL/PHONE VISIT. DISPOSITION & COMMUNICATION FOLLOW UP 6 WEEKS (REASON: BACK PAIN) ELECTRONICALLY SIGNED BY MORIAH VALDES ON 02/05/2020 AT 08:39 AM EDT DISCLAIMER : THIS IS A VISIT SUMMARY EXTRACTED FROM THE [employer] CHART. IT IS NOT A COPY OF THE [employer] PROGRESS NOTE. LES
== END ==
LOC: M TMPAIN 11:00 → M PAIN 11:00
PROVIDERS: ATTEND Family Medicine
DX: M51.17 Intervertebral disc disorders with radiculopathy, lumbosacral region (principal); Z79.899 Other long term (current) drug therapy; Z88.0 Allergy status to penicillin; Z88.8 Allergy status to other drugs, medicaments and biological substances; Z98.84 Bariatric surgery status; Z87.891 Personal history of nicotine dependence

== ENCOUNTER → 2020-02-09 | Outpatient (REF) | payer OTHER ==
[~2020-02-09] MED LIST changes: -BACL10TA2 PO; -BIOT1CAP2 PO; -CVS1CAP2 PO; -EQL50TAB2 PO; -FOLI400T PO; -GABA800T4 PO; -MULTCAP PO; -OMEP40CA97 PO; -TUMS750C22 PO; -VITA500C24 PO
[2020-02-09 11:46] LABS: PROTHROMBIN TIME 12.9 SECONDS (11.8-14.0)
[2020-02-09 15:06] LABS: COMPLEMENT C3 83 MG/DL (90-180); COMPLEMENT C4 22 MG/DL (10-40); CPK CREATINE PHOSPHOKINASE 132 U/L (26-192)
[2020-02-09 15:25] LABS: HEPATITIS B SURFACE ANTIGEN NEGATIVE (NEGATIVE)
[2020-02-16 14:08] LABS: ANTI DS-DNA AB Negative (Negative); CYCLIC CITRULLINATED PEPTIDE 7 units (0-19); HEPATITIS B CORE ANTIBODY IGG Negative (Negative); HLA-B27 Negative (.); RNP ANTIBODY 0.9 AI (0.0-0.9); SMITHS ANTIBODY < 0.2 AI (0.0-0.9); SSA SJOGRENS A <0.2 AI (0.0-0.9); SSB SJOGRENS B <0.2 AI (0.0-0.9)
== END ==
LOC: M SFHCRHEU 09:59
PROVIDERS: ATTEND Internal Medicine
DX: M25.50 Pain in unspecified joint (principal); R76.8 Other specified abnormal immunological findings in serum; R23.8 Other skin changes

== ENCOUNTER → 2020-02-19 | Outpatient (CLI) | payer OTHER ==
[~2020-02-19] MED LIST changes: +BACL10TA2 PO; +BIOT1CAP2 PO; +CVS1CAP2 PO; +EQL50TAB2 PO; +FOLI400T PO; +GABA800T4 PO; +MULTCAP PO; +OMEP40CA97 PO; +TUMS750C22 PO; +VITA500C24 PO
== END ==
LOC: M CLY 06:51
PROVIDERS: ATTEND Internal Medicine
DX: M25.50 Pain in unspecified joint (principal); Z53.9 Procedure and treatment not carried out, unspecified reason

== ENCOUNTER → 2020-02-20 | Outpatient (CLI) | payer OTHER ==
--- NOTE | 2020-02-20 18:09 | REP ---
Clinical: Polyarthralgia. Technique: Frontal view of the pelvis with neutral and frog lateral views of the right and left hip. Findings: Frontal view of the pelvis demonstrates relatively normal appearance to the osseous structures and bilateral sacroiliac joints. The hips demonstrate relatively symmetric minimally increased sclerosis to the acetabular roofs with minimal marginal spurring and joint space narrowing noted. No acute fracture or dislocation appreciated. Phleboliths noted in the pelvis. Impression: Symmetric mild bilateral degenerative changes to the hips. Electronically Signed by Orion Moore MD 02/20/2020 06:01 P
--- NOTE | 2020-02-20 18:12 | REP ---
Clinical: Polyarthralgia. Technique: AP, lateral, bilateral oblique and sunrise views of the right knee. Findings: Increased sclerosis and mild fraying along the anterior margin of the patella suggests patellar tendinopathy. Remainder of the examination is essentially age-appropriate. No further arthritic changes are identified. No acute fracture or dislocation. No effusion. Impression: Mild degenerative changes primarily involving the patella. Electronically Signed by Orion Moore MD 02/20/2020 06:03 P
== END ==
LOC: M CLY 15:34
PROVIDERS: ATTEND Internal Medicine
DX: N13.0 Hydronephrosis with ureteropelvic junction obstruction (principal)

== ENCOUNTER → 2020-02-21 | Outpatient (REF) | payer OTHER ==
[2020-02-21 16:36] LABS: BASO % 0.7 % (0.0-1.0); EOS # 0.1 10^3/uL (0.0-0.5); EOS % 2.4 % (0.0-3.0); HEMATOCRIT 37.1 % (36.0-47.0); HEMOGLOBIN 12.2 g/dl (12.0-15.5); LYMPH # 1.4 10^3/uL (1.5-5.0); LYMPH % 26.4 % (24.0-44.0); MEAN CORPUSCULAR HEMOGLOBIN 31.3 pg (27.0-33.0); MEAN CORPUSCULAR HGB CONC 32.9 g/dl (32.0-36.5); MEAN CORPUSCULAR VOLUME 95.1 fl (80.0-96.0); MONO # 0.3 10^3/uL (0.0-0.8); MONO % 6.2 % (0.0-5.0); NEUTROPHILS # 3.4 10^3/uL (1.5-8.5); NEUTROPHILS % 64.1 % (36.0-66.0); PLATELET COUNT, AUTOMATED 221 10^3/uL (150-450); WHITE BLOOD COUNT 5.3 10^3/uL (4.0-10.0)
[2020-02-21 16:39] LABS: HEMATOCRIT 37.7 % (36.0-47.0)
[2020-02-21 17:10] LABS: HEMOGLOBIN A1c 5.3 %
[2020-02-21 17:25] LABS: ALBUMIN 3.7 GM/DL (3.2-5.2); ALT/SGPT 23 U/L (12-78); BILIRUBIN,TOTAL 0.5 MG/DL (0.2-1.0); BLOOD UREA NITROGEN 8 MG/DL (7-18); CALCIUM LEVEL 8.6 MG/DL (8.5-10.1); CARBON DIOXIDE LEVEL 32 MEQ/L (21-32); CHLORIDE LEVEL 103 MEQ/L (98-107); CREATININE FOR GFR 0.55 MG/DL (0.55-1.30); FERRITIN 132 NG/ML (8-252); GLOMERULAR FILTRATION RATE > 60.0 (>58); GLUCOSE, FASTING 87 MG/DL (70-100); IRON (FE) 93 UG/DL (50-170); MAGNESIUM LEVEL 1.9 MG/DL (1.8-2.4); PERCENT SATURATION 36.6 % (13.2-45.0); PHOSPHORUS LEVEL 3.5 MG/DL (2.5-4.9); POTASSIUM SERUM 4.2 MEQ/L (3.5-5.1); SODIUM LEVEL 139 MEQ/L (136-145); TOTAL IRON BINDING CAPACITY 254 UG/DL (250-450); TOTAL PROTEIN 6.3 GM/DL (6.4-8.2)
[2020-02-21 17:28] LABS: VITAMIN B12 LEVEL > 2000 PG/ML (247-911)
== END ==
LOC: M LABDRAWC 15:50
PROVIDERS: ATTEND Physician Assistant
DX: K91.2 Postsurgical malabsorption, not elsewhere classified (principal); Z98.84 Bariatric surgery status; E55.9 Vitamin D deficiency, unspecified; Z86.39 Personal history of other endocrine, nutritional and metabolic disease

== ENCOUNTER → 2020-02-22 | Outpatient (CLI) | payer OTHER ==
--- NOTE | 2020-02-28 09:20 | RADONC ---
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 ECOG PERFORMANCE STATUS: 0. CONSULTATION NOTE: Ms. Quinteros is a delightful 39-year-old white female with the diagnosis of a squamous cell carcinoma involving her right great toe who is presenting to us today status post excisions for discussion of postoperative radiation therapy with electron beam in order to achieve local control. Apparently, the patient underwent Mohs surgery for a squamous cell carcinoma in the subungual region of the right great toe in 2018. She subsequently developed a local recurrence and was seen by Dr. Phil Malone who undertook a re-excision on 02/05/2020. Pathology revealed squamous cell carcinoma. The final margins were noted to be negative for malignancy. Dr. Malone however realized that the tumor was quite close and there was concern for a subsequent local recurrence. The patient is now being referred to us for discussion of postoperative radiation therapy in an attempt to increase the likelihood of achieving local control. PAST MEDICAL HISTORY: The patient's past medical history is positive for bipolar disease with anxiety and depression. She has GERD. SURGICAL HISTORY: Positive for a cholecystectomy at the age of 26 in 2006. She had gastric bypass surgery in 2019 at the age of 38. She had a hernia repair in 2019 as well. Mohs procedure as noted above of the right great toe was done in 2018. She had a tubal ligation in 2010. Uterine ablation was done in 2016. She had wisdom teeth extracted in 2018. ALLERGIES: - PENICILLIN - CEFDINIR SOCIAL HISTORY: The patient has smoked one pack of cigarettes per day for 23 years, she quit in 2018. She drinks alcohol socially. FAMILY HISTORY: The patient's family history is positive for a grandmother with lung cancer and uncle with lung cancer as well as brain metastasis and a grandfather with colon cancer and lung cancer. REVIEW OF SYSTEMS: The patient's review of systems is positive for pain over her right great toe since excision of the majority of the toenail. This is causing her some physical limitations. She has headaches, anxiety and depression. She reports that she has some hearing loss as well. She denies nausea, vomiting, fevers, chills, night sweats, diplopia, chest pain, urinary or bowel difficulties, bone pain, or neurological problems. PHYSICAL EXAMINATION: The patient is a well-developed, well-nourished white female in no acute distress. HEENT exam is normocephalic, atraumatic. Extraocular movements are intact. Examination of the patient's right foot reveals the toenail has largely been excised. She has a healing area were the toenail was. There is no definite nodularity or obvious residual disease. There are no other lesions present. Further physical exam was deferred as per COVID-19 precautions. ASSESSMENT: I believe the patient is a candidate for external beam radiation therapy and I have so informed her. I have discussed with the patient in detail the potential benefits as well as possible acute and chronic sequelae of external beam radiation therapy. We discussed logistics of treatment planning, simulation and subsequent fractionated daily radiation treatments. I did specifically discuss with this patient the risks of electron beam therapy to her toe and specifically the toenail. It is very likely the patient will lose her toenail and this could be quite painful. The patient reports that she has already lost much of the toenail and it is painful. She would rather risk that discomfort than have her toe amputated. After a lengthy discussion, she has decided she would rather take this risk and she is fully aware. If the pain becomes great or the tumor recurs again, she can always have his toe amputated. I have scheduled the patient for the next available electron beam simulation slot and radiation treatments will begin subsequently. Thank you for allowing us to participate in the care of this very delightful woman. If I could be of any further assistance, please feel free to contact me at anytime. As always warm regards. cc: MD Alise Llanos NP
== END ==
LOC: M ONCR 08:48
PROVIDERS: ATTEND Radiology Radiation Oncology
DX: C44.722 Squamous cell carcinoma of skin of right lower limb, including hip (principal)

== ENCOUNTER → 2020-03-19 | Outpatient (RCR) | payer OTHER ==
--- NOTE | 2020-03-05 16:09 | RADONC ---
RADIATION ONCOLOGY SIMULATION NOTE DATE: 03/01/2020 CHART NUMBER: #[id number] SIMULATION NOTE: Ms. Quinteros was taken to the linear accelerator today for clinical setup of her right big toe. Setup was accomplished without difficulty or discomfort. Radiation treatment planning is underway and radiation treatments will begin subsequently. An immobilization device was not necessary at this time. We did place shielding between the large toe and the next toe over to avoid any radiation to that other toe. The patient was set up without difficulty as noted above. I was physically present throughout the course of clinical setup simulation. Once again, we will be treating this toe to a dose of 6000 cGy in 30 fractions of 200 cGy each using a 6 MeV electron beam prescribed to the 90% isodose line via non phos technique. 0.5 cm of tissue equivalent bolus will be placed over the field and shielding has been placed to avoid radiation to the other toes.
--- NOTE | 2020-03-14 13:51 | RADONC ---
RADIATION ONCOLOGY PROGRESS NOTE DATE OF SERVICE: 03/11/2020 CHART NUMBER: [id number]. 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 Had a diagnosis of squamous cell carcinoma in the right big toe. She was initially treated Mohs procedure, and she had a persistent lesion. She is receiving radiation therapy. She received 800 cGy in four fractions. She is tolerating treatment very well without noticiable side effect. SYSTEMIC REVIEW: She has pain which she is taking Tylenol for it. PHYSICAL EXAMINATION: noted lesion in the right bit toe. No significant skin changes.no swelling or discharge Other physical examination is noncontributory. Treatment will continue as planned. [facility]
--- NOTE | 2020-03-21 12:05 | RADONC ---
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 She had persistent lesion in the big toe and she is on radiation therapy. So far, she has received a dose of 1600 cGy in 9 fractions. She tolerated the treatment without side effect. SYSTEMIC REVIEW: She has significant pain in the right toe, pain scale of 9-10, especially at night. She is using ice for the pain and also taking Tylenol. PHYSICAL EXAMINATION: Lesion in the right big toe seems to be a little bit more flattened compared to last weeks examination. No significant skin changes. No swelling or discharge. Other physical examination is noncontributory. ASSESSMENT AND RECOMMENDATION: 39-year-old woman who carries the diagnosis of squamous cell carcin lita of the right big toe status post Mohs procedure. She is receiving radiation therapy for the persistent disease. She is tolerating treatment very well without any side effect. However, she has significant pain in the right big toe. Pain scale of 9/10 and she has difficulty of sleeping because of the pain. She is currently using Tylenol and then ice. Thee treatment will continue ass planned. [facility]
== END ==
LOC: M ONCR 03-01 08:27
PROVIDERS: ATTEND Radiology Radiation Oncology
DX: C44.702 Unspecified malignant neoplasm of skin of right lower limb, including hip (principal)

== ENCOUNTER → 2020-03-26 | Outpatient (REF) | payer OTHER ==
[~2020-03-26] MED LIST changes: +DULO1CAP5; +FLUC150T; +PERC5TAB12 PO
[2020-03-26 11:13] LABS: BASO % 0.4 % (0.0-1.0); EOS # 0.1 10^3/uL (0.0-0.5); HEMATOCRIT 41.2 % (36.0-47.0); HEMOGLOBIN 13.4 g/dl (12.0-15.5); LYMPH # 1.7 10^3/uL (1.5-5.0); LYMPH % 21.2 % (24.0-44.0); MEAN CORPUSCULAR HEMOGLOBIN 30.8 pg (27.0-33.0); MEAN CORPUSCULAR HGB CONC 32.5 g/dl (32.0-36.5); MEAN CORPUSCULAR VOLUME 94.7 fl (80.0-96.0); MONO # 0.5 10^3/uL (0.0-0.8); MONO % 5.8 % (0.0-5.0); NEUTROPHILS # 5.6 10^3/uL (1.5-8.5); NEUTROPHILS % 71.2 % (36.0-66.0); PLATELET COUNT, AUTOMATED 296 10^3/uL (150-450); RED BLOOD COUNT 4.35 10^6/uL (4.00-5.40); WHITE BLOOD COUNT 7.8 10^3/uL (4.0-10.0)
[2020-03-26 11:23] LABS: INR 0.99; PROTHROMBIN TIME 12.8 SECONDS (11.8-14.0)
[2020-03-26 11:24] LABS: PARTIAL THROMBOPLASTIN TIME 33.4 SECONDS (25.0-38.4)
[2020-03-26 16:27] LABS: COLLAGEN EPINEPHRINE 160 SECONDS (74-162)
[2020-03-31 19:06] LABS: HLA CLASS 1 ANTIBODY Negative (Negative); IIb/IIIa ANTIBODY Negative (Negative); Ia/IIa ANTIBODY Negative (Negative); Ib/IX ANTIBODY Negative (Negative)
== END ==
LOC: M SFHCCLAY 06:58
PROVIDERS: ATTEND Family Medicine
DX: R23.8 Other skin changes (principal)

== ENCOUNTER 2020-05-30 10:46 | Emergency (ER) | payer OTHER ==
[~2020-05-30] VITALS: Ht 165.1 cm; Wt 65.9 kg
[~2020-05-30 10:46] MED LIST changes: -DULO1CAP5; -FLUC150T
[2020-05-30] MEDS ORDERED: DULO1CAP5 (10:57)
[2020-05-30] MEDS ORDERED: FLUC150T (10:57)
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
[2020-05-30] MEDS ORDERED: KETOROLAC 60MG 2ML VIAL IM ONE (13:15)
--- NOTE | 2020-05-30 13:18 | REPVR ---
PROCEDURE INFORMATION: Exam: CT Cervical Spine Without Contrast Exam date and time: 05/30/2020 12:45 PM Age: 39 years old Clinical indication: Neck pain; Additional info: Neck pain; S/P fall TECHNIQUE: Imaging protocol: Computed tomography images of the cervical spine without contrast. Radiation optimization: All CT scans at this facility use at least one of these dose optimization techniques: automated exposure control; mA and/or kV adjustment per patient size (includes targeted exams where dose is matched to clinical indication); or iterative reconstruction. COMPARISON: No relevant prior studies available. FINDINGS: Vertebrae: Straightening of the cervical lordosis may be positional or due to muscle spasm. No acute fracture seen. Discs/Spinal canal/Neural foramina: Mild degenerative changes at C1-C2. No high-grade disc height loss. Mild uncovertebral arthropathy at C6-C7. No significant stenoses. Soft tissues: Unremarkable. Lungs: Lung apices are normal. IMPRESSION: No cervical spine fracture seen. Electronically signed by: Ruthy Mccall On 05/30/2020 13:17:54 PM
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
[2020-05-30 15:57] VITALS: BP 155/87
== END 2020-05-30 15:59 | disposition home or self-care (01) ==
LOC: M ED 10:46
DX: S09.90XA Unspecified injury of head, initial encounter (principal); Y09 Assault by unspecified means; Y92.9 Unspecified place or not applicable; Y93.9 Activity, unspecified; Y99.9 Unspecified external cause status; R29.818 Other symptoms and signs involving the nervous system; K21.9 Gastro-esophageal reflux disease without esophagitis; Z79.899 Other long term (current) drug therapy; Z88.0 Allergy status to penicillin; Z98.84 Bariatric surgery status
CPT/HCPCS: 70450; 70551; 72125; 96372; 99283; J1885

== ENCOUNTER → 2021-09-26 | Outpatient (CLI) | payer OTHER ==
[~2021-09-26] MED LIST changes: -CEFD1CAP8; +CEFD300C41; +DULO1CAP5; +FLUC150T; -FOLI400T PO; +FOLI400T13 PO; +OMEP40CA4 PO; -OMEP40CA97 PO; +PROHANCE 279.3MG/ML 15ML VIAL As Ordered ONE
== END ==
LOC: M RAD 14:45
PROVIDERS: ATTEND Dermatology
DX: C44.722 Squamous cell carcinoma of skin of right lower limb, including hip (principal)
CPT/HCPCS: 73720; A9576

== ENCOUNTER → 2023-10-23 | Outpatient (CLI) | payer OTHER ==
[~2023-10-23] MED LIST changes: +CEFD1CAP9; -CEFD300C41; -FLUC150T; +FLUC150T9; -OMEP-221; +OMEP40CA5; -PROHANCE 279.3MG/ML 15ML VIAL As Ordered ONE
== END ==
LOC: M RAD 14:45
PROVIDERS: ATTEND Neurological Surgery
DX: M47.892 Other spondylosis, cervical region (principal); M48.02 Spinal stenosis, cervical region; R29.898 Other symptoms and signs involving the musculoskeletal system

== ENCOUNTER → 2023-11-18 | Outpatient (CLI) | payer MEDICAID | LOC: M PAIN 13:00 | PROVIDERS: ATTEND Nurse Practitioner Family | DX: M79.18 Myalgia, other site (principal); G89.29 Other chronic pain; F41.9 Anxiety disorder, unspecified; F31.9 Bipolar disorder, unspecified; Z79.899 Other long term (current) drug therapy; Z88.0 Allergy status to penicillin; Z88.1 Allergy status to other antibiotic agents; Z88.8 Allergy status to other drugs, medicaments and biological substances ==

== ENCOUNTER → 2024-02-29 | Outpatient (CLI) | payer OTHER ==
[2024-02-29 12:56] LABS: BASO % 0.6 % (0.0-1.0); EOS # 0.2 10^3/uL (0.0-0.5); EOS % 2.8 % (0.0-3.0); HEMATOCRIT 40.1 % (36.0-47.0); HEMOGLOBIN 13.3 g/dl (12.0-15.5); LYMPH # 1.2 10^3/uL (1.5-5.0); MEAN CORPUSCULAR HEMOGLOBIN 33.2 pg (27.0-33.0); MEAN CORPUSCULAR HGB CONC 33.2 g/dl (32.0-36.5); MONO # 0.4 10^3/uL (0.0-0.8); MONO % 7.9 % (2.0-8.0); NEUTROPHILS # 3.5 10^3/uL (1.5-8.5); NEUTROPHILS % 65.3 % (36.0-66.0); PLATELET COUNT, AUTOMATED 250 10^3/uL (150-450); RED BLOOD COUNT 4.01 10^6/uL (4.00-5.40); WHITE BLOOD COUNT 5.4 10^3/uL (4.0-10.0)
[2024-02-29 13:13] LABS: INR 0.94; PARTIAL THROMBOPLASTIN TIME 26.9 SECONDS (24.8-34.2); PROTHROMBIN TIME 12.3 SECONDS (12.5-14.5)
[2024-02-29 13:43] LABS: COLLAGEN EPINEPHRINE 136 SECONDS (74-162)
== END ==
LOC: M PLALAB 10:40
PROVIDERS: ATTEND Internal Medicine Hematology
DX: R58 Hemorrhage, not elsewhere classified (principal)

== ENCOUNTER → 2024-07-03 | Outpatient (REF) | payer OTHER ==
[~2024-07-03] MED LIST changes: +GABA-1635 PO; -GABA800T4 PO
[2024-07-03 20:27] LABS: Trichomonas vaginalis (AMP) POSITIVE (NEGATIVE)
[2024-07-03 21:01] LABS: GC DNA AMPLIFICATION NEGATIVE (NEGATIVE)
== END ==
LOC: M LAB REF 16:17
PROVIDERS: ATTEND Nurse Practitioner Family
DX: N89.8 Other specified noninflammatory disorders of vagina (principal)

== ENCOUNTER → 2024-08-15 | Outpatient (REF) | payer OTHER ==
[2024-08-15 18:44] LABS: BASO # 0.1 10^3/uL (0.0-0.2); BASO % 0.7 % (0.0-1.0); EOS # 0.1 10^3/uL (0.0-0.5); HEMATOCRIT 40.4 % (36.0-47.0); HEMOGLOBIN 13.4 g/dl (12.0-15.5); LYMPH # 1.3 10^3/uL (1.5-5.0); LYMPH % 18.2 % (24.0-44.0); MEAN CORPUSCULAR HEMOGLOBIN 33.4 pg (27.0-33.0); MEAN CORPUSCULAR HGB CONC 33.2 g/dl (32.0-36.5); MEAN CORPUSCULAR VOLUME 100.7 fl (80.0-96.0); MONO # 0.5 10^3/uL (0.0-0.8); MONO % 7.1 % (2.0-8.0); NEUTROPHILS # 5.1 10^3/uL (1.5-8.5); NEUTROPHILS % 71.6 % (36.0-66.0); PLATELET COUNT, AUTOMATED 276 10^3/uL (150-450); RED BLOOD COUNT 4.01 10^6/uL (4.00-5.40); WHITE BLOOD COUNT 7.1 10^3/uL (4.0-10.0)
[2024-08-15 19:11] LABS: FOLATE 11.9 NG/ML (>5.4); TOTAL 25(OH) VITAMIN D 22.9 NG/ML (20.0-100.0)
[2024-08-15 19:12] LABS: ALBUMIN 3.8 G/DL (3.2-5.2); ALKALINE PHOSPHATASE 57 U/L (35-104); ALT/SGPT 15 U/L (7.0-40); AST/SGOT 12 U/L (<34); BILIRUBIN,TOTAL 0.3 MG/DL (0.3-1.2); BLOOD UREA NITROGEN 16 MG/DL (9-23); CALCIUM LEVEL 9.6 MG/DL (8.5-10.1); CARBON DIOXIDE LEVEL 30 MMOL/L (20-31); CHLORIDE LEVEL 107 MMOL/L (98-107); CHOLESTEROL LEVEL 192 MG/DL (<200); CHOLESTEROL RISK RATIO 2.04 (<5); CREATININE FOR GFR 0.68 MG/DL (0.55-1.30); GLOMERULAR FILTRATION RATE > 60.0 (>58); GLUCOSE, FASTING 75 MG/DL (60-100); HDL CHOLESTEROL 93.7 MG/DL (>40); LDL CHOLESTEROL 78.3 MG/DL (<100); NON-HDL-C 98.3 MG/DL; PHOSPHORUS LEVEL 3.6 MG/DL (2.5-4.9); POTASSIUM SERUM 5.1 MMOL/L (3.5-5.1); SODIUM LEVEL 140 MMOL/L (136-145); THYROID STIMULATING HORMONE 1.043 uIU/ML (0.55-4.78); TOTAL PROTEIN 6.7 G/DL (5.7-8.2); TRIGLYCERIDES LEVEL 100 MG/DL (<150)
[2024-08-15 19:15] LABS: VITAMIN B12 LEVEL 380 PG/ML (211-911)
== END ==
LOC: M LAB REF 16:33
PROVIDERS: ATTEND Nurse Practitioner Family
DX: R00.2 Palpitations (principal); E55.9 Vitamin D deficiency, unspecified; Z98.84 Bariatric surgery status

== ENCOUNTER → 2024-08-23 | Outpatient (CLI) | payer OTHER | LOC: M EKG 10:31 | PROVIDERS: ATTEND Nurse Practitioner Family | DX: R00.2 Palpitations (principal); Z53.9 Procedure and treatment not carried out, unspecified reason ==

== ENCOUNTER → 2024-10-20 | Outpatient (REF) | payer OTHER | LOC: M LAB REF 17:07 | PROVIDERS: ATTEND Nurse Practitioner Family | DX: N89.8 Other specified noninflammatory disorders of vagina (principal) ==

== ENCOUNTER → 2024-12-05 | Outpatient (REF) | payer OTHER | LOC: M LAB REF 17:42 | PROVIDERS: ATTEND Nurse Practitioner Family | DX: R10.30 Lower abdominal pain, unspecified (principal) ==

== ENCOUNTER → 2025-01-05 | Outpatient (REF) | payer OTHER ==
[2025-01-05 13:07] LABS: HEMATOCRIT 44.5 % (36.0-47.0); HEMOGLOBIN 14.7 g/dl (12.0-15.5); MEAN CORPUSCULAR HEMOGLOBIN 32.7 pg (27.0-33.0); MEAN CORPUSCULAR VOLUME 98.9 fl (80.0-96.0); PLATELET COUNT, AUTOMATED 304 10^3/uL (150-450); WHITE BLOOD COUNT 7.7 10^3/uL (4.0-10.0)
[2025-01-05 13:15] LABS: ALBUMIN 3.8 G/DL (3.2-5.2); ALKALINE PHOSPHATASE 54 U/L (35-104); ALT/SGPT 25 U/L (7.0-40); AST/SGOT 24 U/L (<34); BILIRUBIN,TOTAL 0.5 MG/DL (0.3-1.2); BLOOD UREA NITROGEN 11 MG/DL (9-23); CALCIUM LEVEL 9.2 MG/DL (8.5-10.1); CARBON DIOXIDE LEVEL 29 MMOL/L (20-31); CHLORIDE LEVEL 104 MMOL/L (98-107); CHOLESTEROL LEVEL 184 MG/DL (<200); CREATININE FOR GFR 0.69 MG/DL (0.55-1.30); GLOMERULAR FILTRATION RATE > 90.0 (>58); GLUCOSE, FASTING 119 MG/DL (60-100); LDL CHOLESTEROL 84.2 MG/DL (<100); POTASSIUM SERUM 4.4 MMOL/L (3.5-5.1); SODIUM LEVEL 139 MMOL/L (136-145); TOTAL PROTEIN 6.7 G/DL (5.7-8.2); TRIGLYCERIDES LEVEL 99 MG/DL (<150)
[2025-01-05 13:17] LABS: THYROID STIMULATING HORMONE 1.248 uIU/ML (0.55-4.78)
[2025-01-05 14:16] LABS: HEMOGLOBIN A1c 4.8 % (4.0-6.0)
== END ==
LOC: M LAB REF 12:31
PROVIDERS: ATTEND Nurse Practitioner Family
DX: R73.9 Hyperglycemia, unspecified (principal)

== ENCOUNTER → 2025-04-26 | Outpatient (REF) | payer OTHER ==
[~2025-04-26] MED LIST changes: -EQL50TAB2 PO; +VITA1TAB82 PO
== END ==
LOC: M LAB REF 17:18
PROVIDERS: ATTEND Nurse Practitioner Family
DX: R19.7 Diarrhea, unspecified (principal)

== ENCOUNTER → 2025-05-25 | Outpatient (CLI) | payer OTHER ==
[~2025-05-25] MED LIST changes: +E-Z-GAS II EFFERVESCENT PACKET (SODIUM BICARB./CITRIC ACID/SIMETHICONE) As Ordered ONE; +E-Z-HD 98% w/w 340 GM SUSP BTL As Ordered ONE; +E-Z-PAQUE 96% w/w SUSP 176 GM BTL As Ordered ONE
== END ==
LOC: M RAD 09:01
PROVIDERS: ATTEND Surgery
DX: R19.7 Diarrhea, unspecified (principal); R10.84 Generalized abdominal pain; Z98.84 Bariatric surgery status

== ENCOUNTER 2025-07-03 06:39 | Day surgery (SDC) | payer OTHER ==
[~2025-07-03] VITALS: Ht 167.6 cm; Wt 70.5 kg
[~2025-07-03 06:39] MED LIST changes: +ACAR25TA2 PO; +DULO1CAP6 PO; -E-Z-GAS II EFFERVESCENT PACKET (SODIUM BICARB./CITRIC ACID/SIMETHICONE) As Ordered ONE; -E-Z-HD 98% w/w 340 GM SUSP BTL As Ordered ONE; -E-Z-PAQUE 96% w/w SUSP 176 GM BTL As Ordered ONE; +FLUTISP; +LIDO1ADH52 TOP; +SUCR1TAB56 PO; +VENTAER INH; +VITA200032 PO
[2025-07-03] MEDS ORDERED: LIDOCAINE 2% 100 MG/5 ML SDV (FOR ANES.) As Ordered ONE (06:40)
[2025-07-03 08:22] VITALS: BP 130/70; O2SAT 97
== END 2025-07-03 08:28 | disposition home or self-care (01) ==
LOC: M OPP 06:39
PROVIDERS: ATTEND Surgery
DX: K63.5 Polyp of colon (principal); K52.9 Noninfective gastroenteritis and colitis, unspecified; K44.9 Diaphragmatic hernia without obstruction or gangrene; R10.84 Generalized abdominal pain; Z98.84 Bariatric surgery status; Z88.0 Allergy status to penicillin; Z88.8 Allergy status to other drugs, medicaments and biological substances; Z79.51 Long term (current) use of inhaled steroids; Z79.899 Other long term (current) drug therapy; F17.210 Nicotine dependence, cigarettes, uncomplicated
CPT/HCPCS: 43235; 45380; 88305; J3010

== ENCOUNTER → 2025-07-06 | Outpatient (REF) | payer OTHER ==
[2025-07-06 19:13] LABS: Trichomonas vaginalis (AMP) NOT DETECTED (NEGATIVE)
[2025-07-06 19:36] LABS: GC DNA AMPLIFICATION NEGATIVE (NEGATIVE)
== END ==
LOC: M LAB REF 17:01
PROVIDERS: ATTEND Nurse Practitioner Family
DX: N89.8 Other specified noninflammatory disorders of vagina (principal)

== ENCOUNTER → 2025-07-19 | Outpatient (CLI) | payer OTHER ==
[~2025-07-19] MED LIST changes: +ISOVUE-370 76% 100 ML VIAL As Ordered ONE
== END ==
LOC: M RAD 14:11
PROVIDERS: ATTEND Physician Assistant Surgical
DX: Z98.84 Bariatric surgery status (principal); R11.2 Nausea with vomiting, unspecified
CPT/HCPCS: 74177; Q9967

== ENCOUNTER → 2025-07-27 | Outpatient (REF) | payer OTHER ==
[~2025-07-27] MED LIST changes: -ISOVUE-370 76% 100 ML VIAL As Ordered ONE
[2025-07-27 18:18] LABS: ESTIMATED AVERAGE GLUCOSE 103.0 MG/DL (60-110)
[2025-07-27 18:23] LABS: ALT/SGPT 17 U/L (7.0-40); AST/SGOT 22 U/L (<34); CALCIUM LEVEL 8.9 MG/DL (8.5-10.1); CARBON DIOXIDE LEVEL 29 MMOL/L (20-31); CHLORIDE LEVEL 103 MMOL/L (98-107); CREATININE FOR GFR 0.80 MG/DL (0.55-1.30); GLOMERULAR FILTRATION RATE > 90.0 (>58); IRON (FE) 118 UG/DL (50-170); PERCENT SATURATION 37.3 % (13.2-45.0); POTASSIUM SERUM 4.8 MMOL/L (3.5-5.1); SODIUM LEVEL 139 MMOL/L (136-145); VITAMIN B12 LEVEL 360 PG/ML (211-911)
[2025-07-27 18:24] LABS: TOTAL 25(OH) VITAMIN D 42.9 NG/ML (20.0-100.0)
== END ==
LOC: M LAB REF 17:07
PROVIDERS: ATTEND Nurse Practitioner Family
DX: Z01.818 Encounter for other preprocedural examination (principal); Z98.84 Bariatric surgery status; E55.9 Vitamin D deficiency, unspecified

== ENCOUNTER → 2025-07-30 | Outpatient (REF) | payer OTHER ==
[2025-07-30 15:07] LABS: BASO # 0.0 10^3/uL (0.0-0.2); BASO % 0.5 % (0.0-1.0); EOS # 0.1 10^3/uL (0.0-0.5); EOS % 0.9 % (0.0-3.0); LYMPH # 1.1 10^3/uL (1.5-5.0); LYMPH % 14.2 % (24.0-44.0); MONO # 0.5 10^3/uL (0.0-0.8); MONO % 6.7 % (2.0-8.0); NEUTROPHILS # 5.9 10^3/uL (1.5-8.5); NEUTROPHILS % 77.4 % (36.0-66.0); PLATELET COUNT, AUTOMATED 309 10^3/uL (150-450)
== END ==
LOC: M LAB REF 14:27
PROVIDERS: ATTEND Nurse Practitioner Family
DX: Z01.818 Encounter for other preprocedural examination (principal)

== ENCOUNTER 2025-09-06 08:13 | Emergency (ER) | payer OTHER ==
[~2025-09-06] VITALS: Ht 167.6 cm; Wt 72.5 kg
[2025-09-06] MEDS ORDERED: ISOVUE-370 76% 100 ML VIAL As Ordered ONE (08:30)
[2025-09-06] MEDS: NS 500 ML IV ONE (08:34)
[2025-09-06 08:53] LABS: BASO # 0.0 10^3/uL (0.0-0.2); BASO % 0.7 % (0.0-1.0); EOS # 0.1 10^3/uL (0.0-0.5); EOS % 1.3 % (0.0-3.0); LYMPH # 1.0 10^3/uL (1.5-5.0); LYMPH % 15.6 % (24.0-44.0); MONO # 0.4 10^3/uL (0.0-0.8); MONO % 6.4 % (2.0-8.0); NEUTROPHILS # 4.6 10^3/uL (1.5-8.5); NEUTROPHILS % 75.7 % (36.0-66.0); PLATELET COUNT, AUTOMATED 236 10^3/uL (150-450)
[2025-09-06] MEDS ORDERED: QUET50TA4 PO (08:55)
[2025-09-06 09:12] LABS: CK-MB VALUE MASS < 1.0 NG/ML (<3.6)
[2025-09-06 09:13] LABS: ETHYL ALCOHOL (ETHANOL) < 0.003 % (0.000-0.010)
[2025-09-06 09:15] LABS: ALT/SGPT 17 U/L (7.0-40); AST/SGOT 22 U/L (<34); CALCIUM LEVEL 8.7 MG/DL (8.5-10.1); CARBON DIOXIDE LEVEL 29 MMOL/L (20-31); CHLORIDE LEVEL 105 MMOL/L (98-107); CREATININE FOR GFR 0.70 MG/DL (0.55-1.30); GLOMERULAR FILTRATION RATE > 90.0 (>58); POTASSIUM SERUM 4.3 MMOL/L (3.5-5.1); SODIUM LEVEL 143 MMOL/L (136-145)
[2025-09-06 09:19] LABS: CPK CREATINE PHOSPHOKINASE 48 U/L (34-145); HCG, SERUM QUALITATIVE NEGATIVE (NEGATIVE)
[2025-09-06 09:32] LABS: INR 0.96
[2025-09-06 11:22] LABS: APPEARANCE, URINE CLEAR (CLEAR); BACTERIA, URINE AUTO NEGATIVE (NEGATIVE); BILIRUBIN, URINE AUTO NEGATIVE (NEGATIVE); BLOOD, URINE BLOOD NEGATIVE (NEGATIVE); GLUCOSE, URINE (UA) AUTO NEGATIVE (NEGATIVE); KETONE, URINE AUTO NEGATIVE (NEGATIVE); LEUKOCYTE ESTERASE, URINE AUTO NEGATIVE (NEGATIVE); NITRITE, URINE AUTO NEGATIVE (NEGATIVE); PROTEIN, URINE AUTO NEGATIVE (NEGATIVE); RBC, URINE AUTO 1 /HPF (0-3); SPECIFIC GRAVITY URINE AUTO 1.038 (1.002-1.035); SQUAMOUS EPITHELIAL CELL UR AU 2 /HPF (0-6); UROBILINOGEN, URINE AUTO 2.0 mg/dL (0.0-2.0); WBC, URINE AUTO 0 /HPF (0-3)
[2025-09-06 11:42] LABS: AMPHETAMINES LEVEL URINE NEGATIVE (NEGATIVE)
[2025-09-06 11:43] LABS: BARBITURATES URINE NEGATIVE (NEGATIVE); BENZODIAZEPINES URINE NEGATIVE (NEGATIVE); CANNABINOIDS URINE POSITIVE (NEGATIVE); COCAINE METABOLITE URINE NEGATIVE (NEGATIVE); METHADONE URINE NEGATIVE (NEGATIVE); OPIATES URINE NEGATIVE (NEGATIVE); PHENCYCLIDINE URINE NEGATIVE (NEGATIVE)
[2025-09-06 13:20] LABS: PLATELET COUNT, AUTOMATED 240 10^3/uL (150-450)
[2025-09-06] MEDS: ACETAMINOPHEN *IV* 1,000 MG in IV 1 EA IV ONE (14:49)
[2025-09-06 17:30] VITALS: BP 138/78; TEMP 98.2; O2SAT 100
[2025-09-06] MEDS ORDERED: KETO-204 PO (19:59)
[2025-09-06] MEDS: NORCO 5/325MG TABLET (HOME DOSE PACK) PO ONE (20:09)
== END 2025-09-06 20:39 | disposition home or self-care (01) ==
LOC: M ED 08:13 → EDBD 08:13 → M ED 20:39
DX: S19.9XXA Unspecified injury of neck, initial encounter (principal); V40.5XXA Car driver injured in collision with pedestrian or animal in traffic accident, initial encounter; Y92.9 Unspecified place or not applicable; Y93.9 Activity, unspecified; Y99.9 Unspecified external cause status; F41.9 Anxiety disorder, unspecified; K21.9 Gastro-esophageal reflux disease without esophagitis; Z87.891 Personal history of nicotine dependence; M51.26 Other intervertebral disc displacement, lumbar region; M25.78 Osteophyte, vertebrae; Z98.84 Bariatric surgery status; Z79.899 Other long term (current) drug therapy; Z88.0 Allergy status to penicillin; Z88.1 Allergy status to other antibiotic agents; Z88.8 Allergy status to other drugs, medicaments and biological substances
CPT/HCPCS: 70450; 71045; 71260; 72125; 72128; 72131; 72141; 72148; 72170; 74177; 80048; 80076; 80307; 81001; 82077; 82150; 82550; 82553; 83605; 83690; 84484; 84703; 85025; 85027; 85610; 85730; 86850; 86900; 86901; 93005; 93041; 94760; 96365; 96375; 96376; 99285; J0134; J3010; Q9967